=== PATIENT | male | born 1960 | race Caucasian/White ===

== ENCOUNTER → 2018-08-08 | Emergency (ER) | payer BC, OTHER ==
[~2018-08-08] VITALS: Ht 170.2 cm; Wt 74.8 kg
[~2018-08-08] MED LIST: CYCL10TA9 PO; IBUP-1780 PO; KETOROLAC 30 MG/ML VIAL IM ONE
--- OUTSIDE RECORDS SUMMARY | 2018-08-08 04:31 | XMS REPORT ---
Author Author HELENA ROSS [facility] eClinicalWorks Address Unknown Phone Unavailable Care Team Providers Care Web Weaver Name Role Phone HELENA ROSS CP Unavailable Allergies No Known Allergies Problems Problem Type Condition ICD-9 Code Onset Dates Condition Status Problem Hyperlipidemia 272.4 Active Assessment Hypertension 401.9 Active Problem Hypertension 401.9 Active Assessment Hyperlipidemia 272.4 Active Medications No Known Medications Procedures Procedure Coding System Code Date COMPLETE CBC W/AUTO DIFF WBC CPT-4 26406 Jul 04, 2015 LIPID PANEL CPT-4 43089 Jul 04, 2015 ASSAY THYROID STIM HORMONE CPT-4 21310 Jul 04, 2015 VENIPUNCT, ROUTINE* CPT-4 78768 Jul 04, 2015 COMPREHEN METABOLIC PANEL CPT-4 91977 Jul 04, 2015 Results No Known Results Summary Purpose eClinicalWorks Submission
--- OUTSIDE RECORDS SUMMARY | 2018-08-08 04:31 | XMS REPORT ---
Author Author TARI DIAL Organization [facility] Address [address] [place] [address] Care Team Providers Care Strategy Analyst Name Role Phone TARI DIAL Unavailable PROBLEMS Type Condition ICD9-CM Code [id number] Code Onset Dates Condition Status SNOMED Code Problem Essential hypertension I10 Active 44713654 Problem Cigarette nicotine dependence without complication F17.210 Active 02601834 Problem Hyperlipidemia 272.4 Active 51611785 Problem Pure hypercholesterolemia E78.00 Active 501681172 Problem Hypertension 401.9 Active 54408305 ALLERGIES No Information ENCOUNTERS Encounter Location Date Diagnosis [place] [address] [address] February, Essential hypertension I10 [place] [address] [address] Jul, [place] [address] [address] Apr, [place] [address] [address] [place] [id number] [place] [address] Apr, Essential hypertension I10 ; Pure hypercholesterolemia E78.00 ; Microscopic hematuria R31.29 and Cigarette nicotine dependence without complication F17.210 [place] [address] [address] [place] [id number] [place] [address] February, Acute upper respiratory infection, unspecified J06.9 [place] [address] [address] Jul, Cigarette nicotine dependence without complication F17.210 [place] [address] [address] Jun, Encounter to establish care Z76.89 ; Cigarette nicotine dependence without complication F17.210 and Essential hypertension I10 [facility] [address] [facility] [id number] [place] [address] Jun, Hypertension 401.9 and Hyperlipidemia 272.4 [facility] [address] [facility] [id number] [place] [address] Jun, Hypertension 401.9 and Hyperlipidemia 272.4 IMMUNIZATIONS No Known Immunizations SOCIAL HISTORY Never Assessed REASON FOR VISIT Refill request PLAN OF CARE VITAL SIGNS MEDICATIONS Medication Instructions Dosage Frequency Start Date End Date Duration Status Losartan Potassium-HCTZ 100-25 MG Orally Once a day 1 tablet 24h 30 days Active RESULTS No Results PROCEDURES No Known procedures INSTRUCTIONS MEDICATIONS ADMINISTERED No Known Medications MEDICAL (GENERAL) HISTORY Type Description Date Medical History hypertension Medical History hyperlipidemia Surgical History right ankle fracture w/ hardware age 15
--- OUTSIDE RECORDS SUMMARY | 2018-08-08 04:31 | XMS REPORT ---
Author Author AMY EMMANUEL Organization [facility] Address [address] [place] [address] Care Team Providers Care Basket Hand Weaver Name Role Phone AMY EMMANUEL Unavailable PROBLEMS Type Condition ICD9-CM Code [id number] Code Onset Dates Condition Status SNOMED Code Problem Essential hypertension I10 Active 50034773 Problem Cigarette nicotine dependence without complication F17.210 Active 23319666 Problem Hyperlipidemia 272.4 Active 79119527 Problem Pure hypercholesterolemia E78.00 Active 245813412 Problem Hypertension 401.9 Active 06670329 ALLERGIES No Known Allergies SOCIAL HISTORY Never Assessed PLAN OF CARE Activity Details Follow Up prn Reason: VITAL SIGNS Height 66 in 2017-03-06 Weight 168.6 lbs 2017-03-06 Temperature 97.7 degrees Fahrenheit 2017-03-06 Heart Rate 78 bpm 2017-03-06 Respiratory Rate 18 2017-03-06 BMI 27.21 kg/m2 2017-03-06 Blood pressure systolic 121 mmHg 2017-03-06 Blood pressure diastolic 83 mmHg 2017-03-06 MEDICATIONS Medication Instructions Dosage Frequency Start Date End Date Duration Status Losartan Potassium-HCTZ 100-25 MG Orally Once a day 1 tablet 24h Active RESULTS No Results PROCEDURES No Known procedures IMMUNIZATIONS No Known Immunizations MEDICAL (GENERAL) HISTORY Type Description Date Medical History hypertension Medical History hyperlipidemia Surgical History right ankle fracture w/ hardware age 15
--- OUTSIDE RECORDS SUMMARY | 2018-08-08 04:31 | XMS REPORT ---
Author Author ANNE LAWRENCE [facility] Address [address] [place] [address] Care Team Providers Care Online Content Coordinator Name Role Phone ANNE LAWRENCE Unavailable PROBLEMS Type Condition ICD9-CM Code [id number] Code Onset Dates Condition Status SNOMED Code Problem Essential hypertension I10 Active 18586850 Problem Cigarette nicotine dependence without complication F17.210 Active 27747238 Problem Hyperlipidemia 272.4 Active 03428956 Problem Pure hypercholesterolemia E78.00 Active 899560893 Problem Hypertension 401.9 Active 52631897 ALLERGIES No Information ENCOUNTERS Encounter Location Date Diagnosis [address] [address] Jul, [place] [address] [address] Apr, [address] [address] Apr, Essential hypertension I10 ; Pure hypercholesterolemia E78.00 ; Microscopic hematuria R31.29 and Cigarette nicotine dependence without complication F17.210 [place] [address] [address] February, Acute upper respiratory infection, unspecified J06.9 [place] [address] [address] Jul, Cigarette nicotine dependence without complication F17.[address] [address] Jun, Encounter to establish care Z76.89 ; Cigarette nicotine dependence without complication F17.210 and Essential hypertension I10 [place] [address] [address] Jun, Hypertension 401.9 and Hyperlipidemia 272.4 [facility] [address] [facility] [id number] [place] [address] Jun, Hypertension 401.9 and Hyperlipidemia 272.4 IMMUNIZATIONS No Known Immunizations SOCIAL HISTORY Never Assessed REASON FOR VISIT Medication refill request PLAN OF CARE VITAL SIGNS MEDICATIONS Medication Instructions Dosage Frequency Start Date End Date Duration Status Lipitor 40 MG Orally Once a day 1 tablet 24h Apr, 30 days Active RESULTS No Results PROCEDURES No Known procedures INSTRUCTIONS MEDICATIONS ADMINISTERED No Known Medications MEDICAL (GENERAL) HISTORY Type Description Date Medical History hypertension Medical History hyperlipidemia Surgical History right ankle fracture w/ hardware age 15
--- OUTSIDE RECORDS SUMMARY | 2018-08-08 04:31 | XMS REPORT ---
Author Author ANNE LAWRENCE [facility] Address [address] [place] [address] Care Team Providers Care Yardage Estimator Name Role Phone ANNE LAWRENCE Unavailable PROBLEMS Type Condition ICD9-CM Code IPD27-GG Code Onset Dates Condition Status SNOMED Code Problem Essential hypertension I10 Active 69804885 Problem Cigarette nicotine dependence without complication F17.210 Active 01799750 Problem Hyperlipidemia 272.4 Active 80155684 Problem Pure hypercholesterolemia E78.00 Active 906031107 Problem Hypertension 401.9 Active 46351050 ALLERGIES No Information ENCOUNTERS Encounter Location Date Diagnosis [address] [address] Jul, [place] [address] [address] Apr, [address] [address] Apr, Essential hypertension I10 ; Pure hypercholesterolemia E78.00 ; Microscopic hematuria R31.29 and Cigarette nicotine dependence without complication F17.210 [place] [address] [address] February, Acute upper respiratory infection, unspecified J06.9 [place] [address] [address] Jul, Cigarette nicotine dependence without complication F17.[address] [address] Jun, Encounter to establish care Z76.89 ; Cigarette nicotine dependence without complication F17.210 and Essential hypertension I10 [place] [address] [address] Jun, Hypertension 401.9 and Hyperlipidemia 272.4 [facility] [address] [facility] [id number] [place] [address] Jun, Hypertension 401.9 and Hyperlipidemia 272.4 IMMUNIZATIONS No Known Immunizations SOCIAL HISTORY Never Assessed REASON FOR VISIT PLAN OF CARE VITAL SIGNS MEDICATIONS Medication Instructions Dosage Frequency Start Date End Date Duration Status Lipitor 40 mg Orally Once a day 1 tablet 24h Apr, 30 day(s) Active RESULTS No Results PROCEDURES No Known procedures INSTRUCTIONS MEDICATIONS ADMINISTERED No Known Medications MEDICAL (GENERAL) HISTORY Type Description Date Medical History hypertension Medical History hyperlipidemia Surgical History right ankle fracture w/ hardware age 15
--- OUTSIDE RECORDS SUMMARY | 2018-08-08 04:31 | XMS REPORT ---
Author Author HELENA ROSS [facility] eClinicalWorks Address Unknown Phone Unavailable Care Team Providers Care Corrections Identification Technician Name Role Phone HELENA ROSS CP Unavailable Allergies, Adverse Reactions, Alerts Substance Reaction Event Type N.K.D.A. Info Not Available Non Drug Allergy Problems Problem Type Condition ICD-9 Code Onset Dates Condition Status Problem Hyperlipidemia 272.4 Active Assessment Hypertension 401.9 Active Problem Hypertension 401.9 Active Assessment Hyperlipidemia 272.4 Active Medications Medication Code System Code Instructions Start Date End Date Status Dosage Atorvastatin Calcium [facility] [address]-05 40 MG Orally Once a day 1 tablet Losartan Potassium-HCTZ [facility] [address]-98 100-25 MG Orally Once a day 1 tablet Procedures Procedure Coding System Code Date Office Visit, New Pt., Level 4 CPT-4 98062 Jul 03, 2015 COMPLETE CBC W/AUTO DIFF WBC CPT-4 16512 Jul 03, 2015 Vital Signs Date/Time: Jul 03, 2015 Temperature 97.9 F Weight 171.6 lbs Height 66 in BMI 27.69 Index Blood Pressure Diastolic 86 mmHg Blood Pressure Systolic 140 mmHg Cardiac Monitoring Heart Rate 76 bpm Results No Known Results Summary Purpose eClinicalWorks Submission
--- OUTSIDE RECORDS SUMMARY | 2018-08-08 04:31 | XMS REPORT ---
Author Author TARI DIAL [facility] eClinicalWorks Address Unknown Phone Unavailable Care Team Providers Care Sales And Customer Relations Rep Name Role Phone TARI DIAL CP Unavailable Allergies, Adverse Reactions, Alerts Substance Reaction Event Type N.K.D.A. Info Not Available Non Drug Allergy Problems Problem Type Condition Code Onset Dates Condition Status Problem Hyperlipidemia 272.4 Active Assessment Encounter to establish care Z76.89 Active Problem Hypertension 401.9 Active Assessment Cigarette nicotine dependence without complication F17.210 Active Assessment Essential hypertension I10 Active Medications Medication Code System Code Instructions Start Date End Date Status Dosage Potassium Gluconate [facility] [address] 595 MG Orally Once a day 1 tablet Chantix Starting Month [facility] [address]-38 0.5 MG X 11 & 1 MG X 42 Orally 2 times a day Jul 07, 2016 1/2 tab in PM X 1 week, 1/2 tab bid X 1 week , 1 inPM and 1/2 in AM X 1 week 1 tab twice a day Losartan Potassium-HCTZ [facility] [address]-06 100-25 MG Orally Once a day 1 tablet Garlic [facility] [address]-90 500 MG Orally Once a day 1 capsule Fish Oil [facility] [address]-98 1000 MG Orally Once a day 2 capsules Procedures Procedure Coding System Code Date Office Visit, Est Pt., Level 4 CPT-4 74106 Jul 07, 2016 Vital Signs Date/Time: Jul 07, 2016 Cardiac Monitoring Heart Rate 80 bpm Weight 166.6 lbs Height 66 in BMI 26.89 Index Blood Pressure Diastolic 82 mmHg Blood Pressure Systolic 126 mmHg Results No Known Results Summary Purpose eClinicalWorks Submission
--- NOTE | 2018-08-08 04:47 | ED Back Pain ---
General Stated Complaint: LOWER BACK PAIN/L LEG PAIN Source of Information: Patient, Spouse Exam Limitations: No Limitations History of Present Illness Date Seen by Provider: Aug 08, 2018 Time Seen by Provider: 04:34 Initial Comments The patient and his significant other present to the ER by private conveyance with chief complaint for the past couple weeks she's had a re-aggravation of some chronic back pain. This particular episode started last night when he went to bed and has not been sleep. He has pain in his left lower back with a nerve pain that radiates down his thigh 5 out of 10. He took some Tylenol and Advil earlier in the week with marginal relief. He's never had imaging done of his back. He's never followed up with a primary care doctor for his back pain. Does have high blood pressure which he takes losartan and HCTZ but he has not taken it this morning yet. He does not have a back brace or use any topical creams or any Tylenol today. Allergies and Home Medications Allergies Coded Allergies: No Known Drug Allergies (Unverified , 08/08/18) Patient Home Medication List Home Medication List Reviewed: Yes Review of Systems Constitutional: No chills, No diaphoresis EENTM: No ear discharge, No ear pain Respiratory: No cough, No short of breath Cardiovascular: No chest pain, No Hx of Intervention Gastrointestinal: No abdominal pain, No constipation, No diarrhea, No nausea Genitourinary: No discharge, No dysuria Musculoskeletal: No back pain, No joint pain Past Zgafolm-Tzwriv-Tvfaud Hx Patient Social History Alcohol Use: Occasionally Uses Alcohol Beverage of Choice: Beer Recreational Drug Use: No Smoking Status: Current Everyday Smoker Type Used: Cigarettes Recent Foreign Travel: No Contact w/Someone Who Travel: No Physical Exam Vital Signs Capillary Refill : Height, Weight, BMI Height: '" Weight: lbs. oz. kg; BMI Method: General Appearance: No Apparent Distress, WD/WN HEENT: PERRL/EOMI, Pharynx Normal, Moist Mucous Membranes Neck: Non Tender, Supple Cardiovascular: Regular Rate, Rhythm, No Edema, Normal Peripheral Pulses Respiratory: Lungs Clear, Normal Breath Sounds, No Accessory Muscle Use, No Respiratory Distress Back: Normal Inspection, Vertebral Tenderness (L5-S1 left side tenderness to palpation) Progress/Results/Core Measures Results/Orders My Orders Orders - TATA GALVEZ Ketorolac Injection (Toradol Injection) (08/08/18 04:45) Progress Progress Note : Time: 04:44 Progress Note Toradol IM followed by careful counseling on use of back brace, topical creams, Tylenol, NSAIDs for the next 2 weeks and follow up in 2 weeks with primary care. We have suggested chiropractic which he is not interested in. Departure Impression Primary Impression: Lumbago with sciatica, left side Qualified Codes: M54.42 - Lumbago with sciatica, left side Disposition: 01 HOME, SELF-CARE Condition: Stable Departure-Patient Inst. Decision time for Depature: 04:45 Referrals: NO,LOCAL PHYSICIAN (PCP/Family) Primary Care Physician Patient Instructions: Low Back Pain (DC) Add. Discharge Instructions: Obtain a back brace and wear it on the days that it helps. Use creams such as icy hot or Biofreeze for your back. Use Tylenol 1000 mg every 8 hours as needed for pain. Alternate ice and heat for your back. Use Advil 800 mg every 8 hours for the next 2 weeks. If you begin to have heartburn or chest pain then stop using the Advil and consult with your doctor. If you have muscle spasms in your back you can use the Flexeril one tablet every 8 hours as needed but Flexeril will cause drowsiness. Plan to follow up with the primary care doctor in the next 2 weeks if you're not seeing significant improvement. Scripts Cyclobenzaprine HCl (Cyclobenzaprine HCl) 10 Mg Tablet 10 MG PO Q8H PRN for SPASMS, #15 TAB 0 Refills Prov: TATA GALVEZ 08/08/18 Ibuprofen (Ibuprofen) 800 Mg Tablet 800 MG PO Q8H for 14 Days, #45 TAB 0 Refills Prov: TATA GALVEZ 08/08/18 TATA GALVEZ Aug 08, 2018 04:47
[2018-08-08 04:54] VITALS: BP 149/93
== END | disposition home or self-care (01) ==
LOC: ER 04:27
DX: M54.42 Lumbago with sciatica, left side (principal); F17.210 Nicotine dependence, cigarettes, uncomplicated
CPT/HCPCS: 96372; 99284

== ENCOUNTER → 2018-08-09 | Outpatient (CLI) | payer BC ==
[~2018-08-09] MED LIST changes: -KETOROLAC 30 MG/ML VIAL IM ONE
--- NOTE | 2018-08-09 11:44 | Diagnostic Imaging Report ---
Clinical indication: A patient with left-sided lower back pain. Pain radiates down left leg. Pain was so bad last night patient came to the emergency room. No specific trauma. Exam: X-ray of the lumbar spine, 3 views. Comparison: None. Findings: There is no acute lumbar spine fracture or dislocation. There is mildly hypertrophic spurs seen throughout the lumbar spine. There is mild loss of intervertebral disc height at the L4-5 level and mild to moderate loss of intervertebral disc height at the L5-S1 level. There is mild facet arthropathy of the lower lumbar spine. There is incompletely imaged left curvature of the thoracolumbar region. The sacroiliac joints show mild sclerosis. Impression: 1: There is no acute lumbar spine fracture or dislocation. 2: Degenerative disease of the lumbar spine, as described above. The results of this report were discussed within Lis Crouch APRN. via the telephone on 07/10/2018 at 0915 hrs. Dictated by: Dictated on workstation # [id number]
== END ==
LOC: RAD 08:42
PROVIDERS: ATTEND Nurse Practitioner Family
DX: M51.17 Intervertebral disc disorders with radiculopathy, lumbosacral region (principal); M46.86 Other specified inflammatory spondylopathies, lumbar region; M53.3 Sacrococcygeal disorders, not elsewhere classified
CPT/HCPCS: 72100

== ENCOUNTER → 2020-04-17 | Outpatient (CLI) | payer BC ==
--- NOTE | 2020-04-17 11:44 | Diagnostic Imaging Report ---
INDICATION: Right shoulder, three views. INDICATION: Traumatic right shoulder pain. Patient reports fall on shoulder yesterday afternoon. COMPARISON: None available. FINDINGS: No fracture or acute osseous abnormality. Bony alignment is maintained. Humeral head is well-seated in the glenohumeral joint. There is moderate degenerative change of the acromioclavicular joint as well as degenerative change noted involving the glenohumeral joint. Mild osteophyte formation is noted in the region of the greater tuberosity. There is no evidence of acromioclavicular joint separation. Regional soft tissues are unremarkable. The visualized right lung is clear. IMPRESSION: No acute fracture or dislocation. Dictated by: Dictated on workstation # [id number]
== END ==
LOC: RAD 10:38
PROVIDERS: ATTEND Nurse Practitioner Family
DX: M25.511 Pain in right shoulder (principal); W19.XXXA Unspecified fall, initial encounter
CPT/HCPCS: 73030

== ENCOUNTER → 2020-04-20 | Outpatient (CLI) | payer BC ==
--- NOTE | 2020-04-20 14:02 | Diagnostic Imaging Report ---
CT Lung Screening INDICATION:40 pack-year smoking history TECHNIQUE: Noncontrast, low-dose CT imaging performed according to the lung cancer screening protocol. Auto Exposure Controls were utilize during the CT exam to meet ALARA standards for radiation dose reduction. COMPARISON:None FINDINGS: There is a 6 mm noncalcified nodular density in the anterior aspect of the right middle lobe (image 107 of 211, series 2. I suspect that this is a benign process but a short-term (three-month) follow-up CT chest exam would be recommended for further study. No other parenchymal mass is identified. However the left suprahilar region does seem prominent. This may well be secondary to the vessels in this area alone as opposed to a mass. Even so, I would recommend that when the patient has his follow-up exam in 3 months that it be performed with intravenous contrast so that the meron can be better evaluated. There is no obvious mediastinal or hilar adenopathy noted. There are calcified nodes in the subcarinal region and in the right hilum. There is no sign of failure, pneumonia or a pleural effusion to indicate an acute abnormality. The heart is mildly enlarged. There are coronary artery calcifications evident. The aorta is not abnormally dilated. The thyroid gland is generally unremarkable. The sections through the upper abdomen failed to show any sign of an acute abnormality. The bone windows are unremarkable for a fracture or for a destructive lesion. IMPRESSION: 1. There is a benign appearing 6 mm nodule in the anterior aspect of the right middle lobe. The left suprahilar region also seems somewhat prominent although there is no clear evidence for a mass in this area. Even so, a short-term (three-month) follow-up CT chest with intravenous contrast would be recommended for further evaluation of both of these findings. 2. There is no acute cardiopulmonary abnormality noted. 3. There is mild cardiomegaly and coronary artery disease. LUNG-RADS CATEGORY:4A MODIFIER: OTHER SIGNIFICANT FINDINGS: Dictated by: Dictated on workstation # [id number]
== END ==
LOC: RAD 12:06
PROVIDERS: ATTEND Nurse Practitioner Family
DX: Z12.2 Encounter for screening for malignant neoplasm of respiratory organs (principal); I51.7 Cardiomegaly; I25.10 Atherosclerotic heart disease of native coronary artery without angina pectoris; R91.1 Solitary pulmonary nodule; F17.210 Nicotine dependence, cigarettes, uncomplicated

== ENCOUNTER 2022-02-05 05:46 | Outpatient (CLI) | payer BC ==
[~2022-02-05] VITALS: Ht 170.8 cm; Wt 61.4 kg
[~2022-02-05 05:46] MED LIST changes: +CYCL10TA25 PO; -CYCL10TA9 PO
[2022-02-06] MEDS ORDERED: POTA8CAP20 PO (11:47)
[2022-02-06] MEDS ORDERED: CHOL500050 PO (11:47)
[2022-02-06] MEDS ORDERED: ATOR40TA70 PO (11:47)
[2022-02-06] MEDS ORDERED: LOSA1TAB23 PO (11:47)
== END 2022-02-06 11:54 | disposition home or self-care (01) ==
LOC: PREOP 05:46
PROVIDERS: ATTEND Surgery
DX: Z01.818 Encounter for other preprocedural examination (principal)

== ENCOUNTER 2022-02-12 07:23 | Day surgery (SDC) | payer BC ==
[~2022-02-12] VITALS: Ht 170 cm; Wt 61.4 kg
[2022-02-12] VITALS (9 sets, daily range): BP systolic 134–186; BP diastolic 67–107
[~2022-02-12 07:23] MED LIST changes: +ATOR40TA70 PO; +CHOL500050 PO; +LOSA1TAB23 PO; +POTA8CAP20 PO
[2022-02-12] MEDS ORDERED: ceFAZolin INJECTION 1,000 MG VIAL IV ONE (07:30)
[2022-02-12] MEDS ORDERED: LIDOCAINE/EPI 2% 1:100,00 (XYLOCAINE) 20 ML VIAL ONE (07:57)
--- NOTE | 2022-02-12 08:16 | Progress Note-Pre Operative ---
Pre-Operative Progress Note H&P Reviewed The H&P was reviewed, patient examined and no changes noted. Time Seen by Provider: 08:00 Date H&P Reviewed: Feb 12, 2022 Time H&P Reviewed: 08:00 Pre-Operative Diagnosis: Left inguinal hernia, site marked REYNOLD KAUR DO Feb 12, 2022 08:16
[2022-02-12] MEDS: LACTATED RINGERS 1,000 ML IV PRN ×2 (08:25→10:23)
[2022-02-12] MEDS ORDERED: fentaNYL INJ 100 MCG/2 ML AMP ONE ×2 (09:10→10:35)
[2022-02-12] MEDS ORDERED: NEOSTIGMINE 3 MG/3 ML VIAL ONE (09:10)
[2022-02-12] MEDS ORDERED: MIDAZOLAM 2 MG/2 ML (VERSED) VIAL ONE (09:10)
[2022-02-12] MEDS ORDERED: ONDANSETRON 4 MG/2 ML (SDV) Z0FRAN ONE (09:10)
[2022-02-12] MEDS ORDERED: ROCURONIUM 10 MG/ML 5 ML SYRINGE IV ONE (09:10)
[2022-02-12] MEDS ORDERED: GLYCOPYRROLATE 0.2 MG/ML (ROBINUL) 2 ML VIAL ONE (09:10)
[2022-02-12] MEDS ORDERED: proPOfol 200 MG/20 ML (DIPRIVAN) VIAL IV ONE (09:10)
[2022-02-12] MEDS ORDERED: LIDOCAINE PF 2% 5 ML (XYLOCAINE) VIAL ONE (09:10)
[2022-02-12] MEDS ORDERED: SEVOFLURANE (ULTANE) 15 ML INHAL SOLN ONE (10:36)
--- NOTE | 2022-02-12 10:39 | Progress Note-Post Operative ---
Post-Operative Progess Note Surgeon (s)/Annealer Helper (s) Surgeon ERYNOLD KAUR DO Annealer Helper: Hans Pre-Operative Diagnosis Left inguinal hernia, site marked Post-Operative Diagnosis Same - direct with beginnings of Direct on right Procedure & Operative Findings Date of Procedure 02/12/22 Procedure Performed/Findings Laparoscopic Left inguinal herniarraphy with mesh placement - Robotic After informed consent was obtained, the patient was brought to the operating room and placed on the operating table in a supine position. He was sterilely prepped and draped in a normal fashion. Local lidocaine was used to infiltrate the skin above the umbilicus. I made an incision with #11 blade, carried down to the skin into subcutaneous tissue and then deepened down the subcutaneous tissue with Bovie electrocautery down to the fascia. Fascia was incised with Bovie electrocautery and bluntly entered the abdomen, swept a finger around, placed 0 Vicryl [id number] suture and placed limited trocar port under direct visualization. Created pneumoperitoneum, able to visualize the hernia and took a picture of this and then placed two 8 mm ports about 10 cm on either side of the midline port using a local lidocaine, 11 blade for stab incision and then advanced the robotic port under direct visualization. Once this was in, I then placed the patient in Trendelenburg and then placed the working instruments, the fenestrated bipolar and the scissors. Looked on the right side and saw early signs of a direct inguinal hernia. I could see the direct hernia defect on the leftt side. Next, I came across the peritoneum approximately 8 cm away from the hernia defect, going across laterally starting lateral about 17cm and cutting toward the median umbilical ligament. I then carefully dissected the visceral peritoneum away and down and then in the midline, went through the parietal side and dissected down to the pubic tubercle, dissecting this down carefully pushing the peritoneum away, I was able to then visualize the pubic tubercle and Hayes's ligament. I went 2 cm posterior and at this point, we then had a critical view of the dissection, able to dissect 2 cm across the midline to the right side, 2 cm posterior to the Hayes's ligament, able to then parietalize the vas deferens and spermatic vessels right at the groove between Hayes's and iliac vein and able to dissect, make sure there was no peritoneum between those two, able to see the indirect hernia space, took a picture of this, looked at the femoral space (no hernia seen). Then I carefully teased out the hernia sac and could visualize the direct hernia space. Next I looked on the cord and cord structures. There was no cord lipoma, therefore nothing needed to be reduced or cut off. I could clearly see the inguinal canal and the indirect space. Next I carried the posterior lateral dissection all the way out and then placed a 12 x 17 Midwieght Bard 3DMax mesh. It laid in nicely, covered the hernia defect and the rest of the area. It was above the peritoneum, sutured it at the pubic tubercle with a 3-0 Vicryl suture and tied this off. This appeared to lay in very nicely. I then brought down the pneumoperitoneum to about 8 mmHg and then started closing the peritoneum. Started laterally and used a 2-0 V-lock barbed suture to start a running stitch to close the peritoneum. This was closed nicely, took a picture of the closure at this point, then removed both needles had switched to a suture furniture delivery driver from the scissors. The patient was then placed back supine, removed all ports under direct visualization, allowed pneumoperitoneum to escape and then closed the supraumbilical incision, closing the fascia with 0 Vicryl suture previously placed. Copiously irrigated all incisions and then closed the two small 8 mm incisions with two interrupted 4-0 undyed Monocryl subcuticular stitches and closed the supraumbilical incision with three interrupted undyed Monocryl subcuticular stitch. Area was cleaned and dried. Dermabond was placed. The patient tolerated the procedure. The sponge, instrument and needle counts were correct at the end of the case. Dr. Maxwell assisted during this surgery by making incisions, closing incisions, helping to identify anatomy and passing/retrieving suture and needles. Anesthesia Type GET Estimated Blood Loss Estimated blood loss (mL): scant Specimens/Packing Specimens Removed none REYNOLD KAUR DO Feb 12, 2022 10:39
[2022-02-12] MEDS ORDERED: ACHD5005 PO (10:40)
--- NOTE | 2022-02-12 10:41 | Discharge Inst-Surgical ---
Discharge Inst-Surgical Depart Medication/Instructions New, Converted or Re-Newed RX: Transmitted to Pharmacy Patient Instructions Follow up Appt: Make appointment for 1 week. [phone] Instructions: No lifting greater than 20 pounds. No strenuous activity. May shower in 24 hours, no tub bath or soaking. Use incentive spirometer at home as directed. No Smoking Skin/Wound Care: May remove bandages in am. You need to leave the Dermabond on incision it will fall off on it's own. Symptoms to Report: Appetite Changes, Extremity Discoloration, Numbness/Tingling, Swelling Increased, Bleeding Excessive, Eyesight Changes, Pain Increased, Urine Color Change, Constipation(Persistent), Fever over 101 degree F, Pain/Pressure in chest, Urinating Difficulty, Cough Up/Vomit Blood, Heart Beat Irreg/Pounding, Pain/Pressure in jaw, Cramps in feet or legs, Lightheadedness, Pain/Pressure in shoulder, Diarrhea(Persistent), Memory Changes Suddenly, Questions/Concerns, Weight gain consecutive days, Dizziness/Fainting, Nausea/Vomiting, Shortness of Breath, Weight gain over 2 pounds If questions or concerns contact your physician Or seek help at emergency department. Activity Activity as Tolerated: Yes Activity Instructions: Avoid Stress to Incision Driving Instructions: No Driving/Refer to Dr. Alvarado Discharge Diet: No Restrictions Diet After 24 Hours: Clear Liquid if Nauseous If Any Problems/Questions/Issu: Contact Your Physician, Go to Emergency Room Skin/Wound Care Infection Signs and Symptoms: Increased Redness, Foul Odor of Wound, Increased Drainage, Skin Itchy or Has a Rash, Increased Swelling, Temperature Above 101 F Wound Care Comment: heating pad to shoulder or neck tonight for pain Bathing Instructions: Shower Stitches/[place]/Dermabond Dis: Dermabond REYNOLD KAUR DO Feb 12, 2022 10:41
[2022-02-12] MEDS ORDERED: morphine INJ 10 MG/ML 1ML (SYR OR VIAL) IVP ONE (11:00)
[2022-02-12] MEDS ORDERED: ONDANSETRON 4 MG/2 ML (SDV) Z0FRAN IVP PRN (11:00)
[2022-02-12] MEDS ORDERED: HYDROmorphone 2 MG/ML VIAL (DILAUDID) IV ONE (11:00)
--- NOTE | 2022-02-13 07:29 | Anesthesia-General Post-Op ---
General Patient Condition Mental Status/LOC: Same as Preop Cardiovascular: Satisfactory Nausea/Vomiting: Absent Respiratory: Satisfactory Pain: Controlled Complications: Absent Post Op Complications Complications None Follow Up Care/Instructions Patient Instructions None needed. Anesthesia/Patient Condition Patient Condition Patient was doing well yesterday after the procedure, no complaints, stable vital signs, no apparent adverse anesthesia problems. No complications reported per nursing. SARA GARSIA DO Feb 13, 2022 07:29
== END 2022-02-12 12:35 | disposition home or self-care (01) ==
LOC: SDC 07:23
PROVIDERS: ATTEND Surgery
DX: K40.90 Unilateral inguinal hernia, without obstruction or gangrene, not specified as recurrent (principal); F17.210 Nicotine dependence, cigarettes, uncomplicated
CPT/HCPCS: 49650; 87081; C1781